=== PATIENT | male | born 1965 | race African-American/Black ===

== ENCOUNTER 2019-10-28 08:42 | Emergency (ER) | payer OTHER ==
[~2019-10-28] VITALS: Ht 180.3 cm; Wt 76.2 kg
--- NOTE | 2019-10-28 08:45 | NUR ---
BIBRA 80 FROM DETENTION C/O ALTERED MENTAL STATE, RESPONDS TO NAME, ALSO UNCOOPERATIVE. BG112, TO ER BED 7, HOOKED TO MONITOR, WARM BLANKET PROVIDED, BREATHING EVEN AND UNLABORED. AWAITING MD BARRON
--- NOTE | 2019-10-28 08:50 | NUR ---
AT BEDSIDE FOR EVAL.
--- NOTE | 2019-10-28 09:30 | NUR ---
Patient a/ox4, breathing even and unlabored, ambulatory with steady gait. Patient discharged to PD in stable condition. Written and verbal after care instructions given. Patient verbalizes understanding of instruction.
[2019-10-28 09:31] VITALS: BP 160/57
== END 2019-10-28 09:32 ==
LOC: ER 08:47
DX: L03.116 Cellulitis of left lower limb (principal)